=== PATIENT | male | born 1965 | race African-American/Black ===

== ENCOUNTER 2017-03-26 13:24 | Emergency (ER) | payer OTHER ==
[2017-03-26] MEDS ORDERED: Sodium Chloride 0.9% 10 ML Syringe FLUSH PRN (13:36)
--- NOTE | 2017-03-26 14:04 | CR ---
Clinical history: 52-year-old male with chest pain. Interpretation: No acute cardiopulmonary abnormality. Hypertrophic arthritic changes dorsal spine (external lead software qa engineer leads). Upright AP portable chest film reveals normal heart without cephalization of flow, alveolar edema or dependent pleural effusion. No lung mass hilar lymphadenopathy or focal lobar pneumonia. No atelectasis/collapse. No pneumothorax .
[2017-03-26 14:15] LABS: CHLORIDE,CL 102 mmol/L (101-111); SODIUM,NA 138 mmol/L (135-145)
--- NOTE | 2017-03-26 14:40 | EDM.PDOC ---
ED HPI GENERAL MEDICAL PROBLEM - General Chief Complaint: Chest Pain Stated Complaint: CHEST PAIN FROM [facility] Time Seen by Provider: 03/26/17 13:40 Source of Information: Reports: Patient, RN, RN Notes Reviewed History Limitations: Reports: No Limitations - History of Present Illness INITIAL COMMENTS - FREE TEXT/NARRATIVE: Pt presents to the ER with c/o throbbing chest pain, rated 7/10. He states he is here from [place] for schooling at [employer]. He states this has been very stressful and he feels he is not performing as well as he could be. He states the pain came on very suddenly and did not radiate anywhere else. He states the pain has resolved upon arrival. He states he has had a past history of anxiety. Onset: Today, Sudden Duration: Improving Location: Reports: Chest Quality: Reports: Throbbing Severity: Moderate Improves with: Reports: None Worsens with: Reports: None Associated Symptoms: Reports: No Other Symptoms - Related Data Allergies Allergy/AdvReac Type Severity Reaction Status Date / Time No Known Allergies Allergy Verified 03/26/17 13:26 Home Meds: Home Meds . [No Known Home Meds] 03/26/17 [History] Past Medical History - Infectious Disease History Infectious Disease History: Reports: Chicken Pox, Measles, Mumps, Rubella - Past Surgical History Musculoskeletal Surgical History: Reports: Shoulder Surgery Other Musculoskeletal Surgeries/Procedures:: shoulder scope Social & Family History - Family History Family Medical History: Noncontributory - Tobacco Use Smoking Status *Q: Current Every Day Smoker Years of Tobacco use: 12 Packs/Tins Daily: 0.4 - Caffeine Use Caffeine Use: Reports: Coffee - Recreational Drug Use Recreational Drug Use: No ED ROS GENERAL - Review of Systems Review Of Systems: ROS reveals no pertinent complaints other than HPI. ED EXAM, GENERAL - Physical Exam Exam: See Below Exam Limited By: No Limitations General Appearance: Alert, WD/WN, No Apparent Distress Eye Exam: Bilateral Eye: Normal Inspection Ears: Normal External Exam, Hearing Grossly Normal Nose: Normal Inspection Throat/Mouth: Normal Inspection, Normal Oropharynx, Normal Voice, No Airway Compromise Head: Atraumatic, Normocephalic Neck: Normal Inspection, Supple, Non-Tender, Full Range of Motion Respiratory/Chest: No Respiratory Distress, Lungs Clear, Normal Breath Sounds, No Accessory Muscle Use, Chest Non-Tender Cardiovascular: Normal Peripheral Pulses, Regular Rate, Rhythm, No Edema, No Gallop, No JVD, No Murmur, No Rub Peripheral Pulses: 2+: Radial (L), Radial (R) GI/Abdominal: Normal Bowel Sounds, Soft, Non-Tender, No Organomegaly, No Distention, No Abnormal Bruit, No Mass (Male) Exam: Deferred Rectal (Males) Exam: Deferred Back Exam: Normal Inspection, Full Range of Motion Extremities: Normal Inspection, Normal Range of Motion, Non-Tender, No Pedal Edema, Normal Capillary Refill Neurological: Alert, Oriented, Normal Cognition, Normal Gait, No Motor/Sensory Deficits Psychiatric: Normal Affect, Normal Mood Skin Exam: Warm, Dry, Intact, Normal Color, No Rash Lymphatic: No Adenopathy EKG INTERPRETATION EKG Date: 03/26/17 Time: 13:31 Rhythm: NSR Export: Normal P-Wave: Present QRS: Normal ST-T: Normal QT: Normal Comparison: NA - No Prior EKG Course - Vital Signs Last Recorded V/S: Last Vital Signs Temp 97.9 F 03/26/17 13:34 Pulse 76 03/26/17 13:34 Resp 18 03/26/17 13:34 BP 133/65 03/26/17 13:34 Pulse Ox 97 03/26/17 13:34 - Orders/Labs/Meds Orders: Active Orders 24 hr Category Date Time Status EKG Documentation Completion [RC] STAT Care 03/26/17 13:36 Active Peripheral IV Care [RC] . DIRECTED Care 03/26/17 13:36 Active Sodium Chloride 0.9% [Saline Flush] Med 03/26/17 13:36 Active 10 ml FLUSH ASDIRECTED PRN Peripheral IV Insertion Adult [OM.PC] Stat Oth 03/26/17 13:36 Ordered Medication Orders Sodium Chloride (Saline Flush) 10 ml FLUSH ASDIRECTED PRN PRN Reason: Keep Vein Open Labs: Laboratory Tests 03/26/17 03/26/17 03/26/17 Range/Units 13:42 13:42 14:34 WBC 9.2 (5.0-10.0) 10^3/uL RBC 5.08 (4.6-6.2) 10^6/uL Hgb 14.5 (14.0-18.0) g/dL Hct 42.8 (40.0-54.0) % MCV 84.3 (80-100) fL MCH 28.5 (27.0-34.0) pg MCHC 33.9 (33.0-35.0) g/dL Plt Count 152 (150-450) 10^3/uL Neut % (Auto) 53.5 (42.2-75.2) % Lymph % (Auto) 35.0 (20.5-50.1) % [place] % (Auto) 9.8 H (2-8) % Eos % (Auto) 1.5 (1.0-3.0) % Baso % (Auto) 0.2 (0.0-1.0) % Sodium 138 (135-145) mmol/L Potassium 3.7 (3.6-5.0) mmol/L Chloride 102 (101-111) mmol/L Carbon Dioxide 25.0 (21.0-31.0) mmol/L Anion Gap 14.7 BUN 24 H (7-18) mg/dL Creatinine 1.1 (0.6-1.3) mg/dL Est Cr Clr Drug Dosing 78.56 mL/min Estimated GFR (MDRD) > 60 BUN/Creatinine Ratio 21.81 Glucose 130 H (74-105) mg/dL Calcium 9.2 (8.4-10.2) mg/dl Total Bilirubin 0.8 (0.2-1.0) mg/dL AST 31 (10-42) IU/L ALT 28 (10-60) IU/L Alkaline Phosphatase 46 (42-121) IU/L Troponin I < 0.02 (0.00-0.02) ng/ml Total Protein 7.1 (6.7-8.2) g/dl Albumin 3.9 (3.2-5.5) g/dl Globulin 3.2 Albumin/Globulin Ratio 1.22 Urine Color Yellow (YELLOW) Urine Appearance Clear (CLEAR) Urine pH 5.5 (5.0-9.0) Ur Specific [place] 1.025 (1.005-1.030) Urine Protein Negative (NEGATIVE) Urine Glucose (UA) Negative (NEGATIVE) Urine Ketones Negative (NEGATIVE) Urine Occult Blood Trace-lysed H (NEGATIVE) Urine Nitrite Negative (NEGATIVE) Urine Bilirubin Negative (NEGATIVE) Urine Urobilinogen 0.2 (0.2-1.0) mg/dL Ur Leukocyte Esterase Negative (NEGATIVE) Urine RBC 0-5 /HPF Urine WBC 0-5 (0-5/HPF) /HPF Ur Epithelial Cells Rare /HPF Urine Bacteria Rare (0-FEW/HPF) /HPF Urine Mucus Rare /LPF Meds: Medications Generic Name Dose Route Start Last Admin Trade Name Freq PRN Reason Stop Dose Admin Sodium Chloride 10 ml 03/26/17 13:36 Saline Flush FLUSH ASDIRECTED PRN Keep Vein Open - Radiology Interpretation Free Text/Narrative:: chest x-ray: No acute findings See rad report Departure - Departure Time of Disposition: 14:56 Disposition: Home, Self-Care 01 Condition: Fair Clinical Impression: Anxiety, Non-cardiac chest pain Instructions: Panic Attacks, [id number], Nonspecific Chest Pain, [id number] Forms: ED Department Discharge Additional Instructions: Rest Follow up with your primary care facility - My Orders Last 24 Hours: My Active Orders 03/26/17 13:36 EKG Documentation Completion [RC] STAT Peripheral IV Care [RC] . DIRECTED Sodium Chloride 0.9% [Saline Flush] 10 ml FLUSH ASDIRECTED PRN Peripheral IV Insertion Adult [OM.PC] Stat - Assessment/Plan Last 24 Hours: My Active Orders 03/26/17 13:36 EKG Documentation Completion [RC] STAT Peripheral IV Care [RC] . DIRECTED Sodium Chloride 0.9% [Saline Flush] 10 ml FLUSH ASDIRECTED PRN Peripheral IV Insertion Adult [OM.PC] Stat
--- NOTE | 2017-03-27 13:14 | EKG ---
03/26/2017 - ALEXEY KIRKPATRICK - This 12-lead EKG shows a normal sinus rhythm with a ventricular rate of 76. Normal axis and intervals. Nonspecific T-wave changes seen in multiple leads. No acute ST-segment or T-wave changes in lateral leads. [facility] /[id number]
== END 2017-03-26 15:22 | disposition home or self-care (01) ==
LOC: DL.ED 13:24
DX: R07.89 Other chest pain (principal); F41.9 Anxiety disorder, unspecified; F17.210 Nicotine dependence, cigarettes, uncomplicated
CPT/HCPCS: 36415; 71010; 80053; 81001; 84484; 85025; 93005; 99285